=== PATIENT | male | born 1945 | race Caucasian/White ===

== ENCOUNTER 2016-09-10 11:26 | Inpatient (IN) | payer MEDICARE, BC ==
--- NOTE | 2016-09-10 12:10 | ED ---
General Adult HPI - General Chief complaint: Shortness of Breath Stated complaint: SOB Time Seen by Provider: 09/10/16 11:50 Source: patient, RN notes reviewed Mode of arrival: ambulatory Limitations: no limitations - History of Present Illness Initial comments: Is a 71-year-old male who presents emergency Department with a past medical history significant for atrial fibrillation and myocardial infarction. Patient states was discharged 2 days ago after he had a myocardial infarction. Patient states he had a catheterization in the catheterization did not require any stenting according to the patient. Patient comes in today because he short of breath complains of a little bit of leg edema and feels mildly anxious. Patient states he has no chest pain. Patient does feel palpitations. Patient denies any nausea vomiting diarrhea per patient denies diaphoresis. Patient denies headache patient denies numbness weakness. Patient denies lightheadedness dizziness or near syncopal episode. Patient denies any recent injury or trauma. - Related Data Home Medications Medication Instructions Recorded Confirmed Aspirin 325 mg PO DAILY 03/22/14 09/06/16 Atorvastatin [Lipitor] 20 mg PO HS 03/22/14 09/06/16 Ranitidine HCl [Zantac] 75 mg PO HS 03/22/14 09/06/16 Previous Rx's Medication Instructions Recorded Amiodarone [Cordarone] 200 mg PO BID #60 tab 09/08/16 Apixaban [Eliquis] 5 mg PO BID #60 tab 09/08/16 Furosemide [Lasix] 20 mg PO BID@0900,1600 #30 tab 09/08/16 Lisinopril [Zestril] 10 mg PO BID #60 tab 09/08/16 Metoprolol Tartrate [Lopressor] 50 mg PO BID #60 tab 09/08/16 Nitroglycerin Sl Tabs [Nitrostat] 0.4 mg SUBLINGUAL Q5M PRN #50 tab 09/08/16 Spironolactone [Aldactone] 25 mg PO DAILY #30 tab 09/08/16 Allergies Allergy/AdvReac Type Severity Reaction Status Date / Time No Known Allergies Allergy Verified 09/10/16 11:53 Review of Systems ROS Statement: Those systems with pertinent positive or pertinent negative responses have been documented in the HPI. ROS Other: All systems not noted in ROS Statement are negative. Past Medical History Past Medical History: Atrial Fibrillation, Heart Failure, Diabetes Mellitus, GERD/Reflux, GI Bleed, Hypertension, Myocardial Infarction ([place]), Osteoarthritis (OA) Additional Past Medical History / Comment(s): DIABETES DIET CONTROLLED, HX OF PERICARDITIS, TOOTH INFECTION AND EXTRACTION 03/21/2014 History of Any Multi-Drug Resistant Organisms: None Reported Past Surgical History: Orthopedic Surgery Additional Past Surgical History / Comment(s): RIGHT KNEE RECONSTRUCTION, RT KNEE ARTHROSCOPY, PILONIDAL CYST Past Anesthesia/Blood Transfusion Reactions: No Reported Reaction Past Psychological History: No Psychological Hx Reported Smoking Status: Former smoker Past Alcohol Use History: Rare Past Drug Use History: None Reported - Past Family History Father Family Medical History: Coronary Artery Disease (CAD), Osteoarthritis (OA) Additional Family Medical History / Comment(s): CABG, valve replacement Mother Family Medical History: Cancer, Diabetes Mellitus Additional Family Medical History / Comment(s): breast cancer Sister(s) Family Medical History: Congestive Heart Failure (CHF), Diabetes Mellitus Brother(s) Family Medical History: Hypertension General Exam - General Exam Comments Initial Comments: GENERAL: Patient is well-developed and well-nourished. Patient is nontoxic and well- hydrated and is in mild distress. ENT: Neck is soft and supple. No significant lymphadenopathy is noted. Oropharynx is clear. Moist mucous membranes. Neck has full range of motion without eliciting any pain. EYES: The sclera were anicteric and conjunctiva were pink and moist. Extraocular movements were intact and pupils were equal round and reactive to light. Eyelids were unremarkable. PULMONARY: Unlabored respirations. Good breath sounds bilaterally. No audible rales rhonchi or wheezing was noted. CARDIOVASCULAR: Patient is tachycardic at about 150 beats a minute. Patient's rate appears regular ABDOMEN: Soft and nontender with normal bowel sounds. No palpable organomegaly was noted. There is no palpable pulsatile mass. SKIN: Skin is clear with no lesions or rashes and otherwise unremarkable. NEUROLOGIC: Patient is alert and oriented x3. Cranial nerves II through XII are grossly intact. Motor and sensory are also intact. Normal speech, volume and content. Symmetrical smile. MUSCULOSKELETAL: Normal extremities with adequate strength and full range of motion. 1+ edema LYMPHATICS: No significant lymphadenopathy is noted PSYCHIATRIC: Normal psychiatric evaluation. Normal interpersonal interactions appears functionally intact in deals appropriately with others. No signs of depression. Mild anxiety Limitations: no limitations Course Vital Signs 09/10/16 09/10/16 09/10/16 11:50 12:24 12:46 Temperature 97.0 F L Pulse Rate 137 H 147 H Respiratory 18 22 22 Rate Blood Pressure 132/88 147/95 O2 Sat by Pulse 96 96 Oximetry 09/10/16 13:23 Temperature Pulse Rate 107 H Respiratory 20 Rate Blood Pressure O2 Sat by Pulse 96 Oximetry Medical Decision Making - Medical Decision Making EKG shows atrial for ablation with rapid ventricular response at 146 bpm QRS is 90 QT interval 258 QTC is 402. Patient's EKG shows no ST segment elevation or depression. I spoke with Dr. Cuellar about the patient because he was just discharged [address] Cuellar was familiar with him. And he wanted started the patient on amiodarone drip after I gave the patient a amiodarone bolus. She was requesting something for anxiety. The patient Ativan. Chest x-ray shows mild interstitial congestion. Dr. Cuellar did come down to see the patient. Patient's heart rate was in the 120s at time of admission. Patient remains an amiodarone drip. I wrote admitting orders consult cardiology - Lab Data Result diagrams: 09/10/16 12:23 09/10/16 12:23 Lab Results 09/10/16 09/10/16 09/10/16 Range/Units 12:23 12:23 12:23 WBC 11.5 H (3.8-10.6) k/uL RBC 5.87 (4.30-5.90) m/uL Hgb 16.1 (13.0-17.5) gm/dL Hct 49.1 (39.0-53.0) % MCV 83.6 (80.0-100.0) fL MCH 27.3 (25.0-35.0) pg MCHC 32.7 (31.0-37.0) g/dL RDW 15.1 (11.5-15.5) % Plt Count 221 (150-450) k/uL Neutrophils % 88 % Lymphocytes % 6 % Monocytes % 6 % Eosinophils % 0 % Basophils % 0 % Neutrophils # 10.1 H (1.3-7.7) k/uL Lymphocytes # 0.7 L (1.0-4.8) k/uL Monocytes # 0.6 (0-1.0) k/uL Eosinophils # 0.0 (0-0.7) k/uL Basophils # 0.0 (0-0.2) k/uL PT (9.0-12.0) sec INR (<1.1) APTT (22.0-30.0) sec Sodium 137 (137-145) mmol/L Potassium 4.6 (3.5-5.1) mmol/L Chloride 102 (98-107) mmol/L Carbon Dioxide 22 (22-30) mmol/L Anion Gap 13 mmol/L BUN 22 H (9-20) mg/dL Creatinine 0.90 (0.66-1.25) mg/dL Est GFR (MDRD) Af Amer >60 (>60 ml/min/1.73 sqM) Est GFR (MDRD) Non-Af >60 (>60 ml/min/1.73 sqM) Glucose 212 H (74-99) mg/dL Calcium 9.5 (8.4-10.2) mg/dL Total Bilirubin 1.2 (0.2-1.3) mg/dL AST 57 (17-59) U/L ALT 105 H (21-72) U/L Alkaline Phosphatase 100 (38-126) U/L Total Creatine Kinase 111 (55-170) U/L CK-MB (CK-2) 4.2 H* (0.0-2.4) ng/mL CK-MB (CK-2) Rel Index 3.8 Troponin I 0.085 H* (0.000-0.034) ng/mL NT-Pro-B Natriuret Pep pg/mL Total Protein 6.0 L (6.3-8.2) g/dL Albumin 3.6 (3.5-5.0) g/dL 09/10/16 09/10/16 Range/Units 12:23 12:23 WBC (3.8-10.6) k/uL RBC (4.30-5.90) m/uL Hgb (13.0-17.5) gm/dL Hct (39.0-53.0) % MCV (80.0-100.0) fL MCH (25.0-35.0) pg MCHC (31.0-37.0) g/dL RDW (11.5-15.5) % Plt Count (150-450) k/uL Neutrophils % % Lymphocytes % % Monocytes % % Eosinophils % % Basophils % % Neutrophils # (1.3-7.7) k/uL Lymphocytes # (1.0-4.8) k/uL Monocytes # (0-1.0) k/uL Eosinophils # (0-0.7) k/uL Basophils # (0-0.2) k/uL PT 12.7 H (9.0-12.0) sec INR 1.3 (<1.1) APTT 24.8 (22.0-30.0) sec Sodium (137-145) mmol/L Potassium (3.5-5.1) mmol/L Chloride (98-107) mmol/L Carbon Dioxide (22-30) mmol/L Anion Gap mmol/L BUN (9-20) mg/dL Creatinine (0.66-1.25) mg/dL Est GFR (MDRD) Af Amer (>60 ml/min/1.73 sqM) Est GFR (MDRD) Non-Af (>60 ml/min/1.73 sqM) Glucose (74-99) mg/dL Calcium (8.4-10.2) mg/dL Total Bilirubin (0.2-1.3) mg/dL AST (17-59) U/L ALT (21-72) U/L Alkaline Phosphatase (38-126) U/L Total Creatine Kinase (55-170) U/L CK-MB (CK-2) (0.0-2.4) ng/mL CK-MB (CK-2) Rel Index Troponin I (0.000-0.034) ng/mL NT-Pro-B Natriuret Pep 31946 pg/mL Total Protein (6.3-8.2) g/dL Albumin (3.5-5.0) g/dL Critical Care Time Critical Care Time: Yes Total Critical Care Time: 40 Disposition Clinical Impression: Atrial fibrillation with RVR Disposition: ADMITTED IP TO THIS HOSP Referrals: Omari Freeman MD [Primary Care Provider] - 1-2 days Time of Disposition: 13:46
[2016-09-10] MEDS ORDERED: DEXTROSE 5% IN WATER 100 ML with AMIODARONE 150 MG IV ONE (12:15)
[2016-09-10] MEDS ORDERED: AMIODARONE 450 MG in DEXTROSE 5% IN WATER 250 ML IV ONE ×2 (12:15)
[2016-09-10] MEDS ORDERED: LORazepam 2 MG/ML SYRINGE IV STA (12:15)
[2016-09-10 12:42] LABS: Basophils % (A) 0 %; CH 27.3; CHCM 32.8; Eosinophils % (A) 0 %; HCT 49.1 % (39.0-53.0); HDW 2.55; HGB 16.1 gm/dL (13.0-17.5); Luc % (Auto) 1; Lymphocytes # (A) 0.7 k/uL (1.0-4.8); Lymphocytes % (A) 6 %; MCH 27.3 pg (25.0-35.0); MCHC 32.7 g/dL (31.0-37.0); MCV 83.6 fL (80.0-100.0); Mean Platelet Volume 7.6; Monocytes # (A) 0.6 k/uL (0-1.0); Monocytes % (A) 6 %; Neutrophils # (A) 10.1 k/uL (1.3-7.7); Neutrophils % (A) 88 %; RBC 5.87 m/uL (4.30-5.90); RDW 15.1 % (11.5-15.5); WBC 11.5 k/uL (3.8-10.6); WBC (Perox) 11.74
--- NOTE | 2016-09-10 12:48 | XR ---
EXAMINATION TYPE: XR chest 2V DATE OF EXAM: 09/10/2016 12:43 PM COMPARISON: 09/05/2016 HISTORY: Shortness of breath FINDINGS: There are bilateral pleural effusions with cardiomegaly and bibasilar infiltrate. There is a diffuse interstitial pattern. Hyperinflation suggests COPD. Underlying chronic interstitial lung disease lubna pected. Josie appears to be enlarged. IMPRESSION: 1. COPD with suspected interstitial congestion or pneumonitis. There are also small bilateral effusio ns. 2. Persistent hilar enlargement reported be related to adenopathy by previous CT scan.
[2016-09-10 12:49] LABS: INR 1.3 (<1.1); Partial Thromboplastin Time 24.8 sec (22.0-30.0); Prothrombin Time 12.7 sec (9.0-12.0)
[2016-09-10 13:01] LABS: ALT 105 U/L (21-72); AST 57 U/L (17-59); Alkaline Phosphatase 100 U/L (38-126); Anion Gap 13 mmol/L; Blood Urea Nitrogen 22 mg/dL (9-20); Calcium 9.5 mg/dL (8.4-10.2); Carbon Dioxide 22 mmol/L (22-30); Chloride 102 mmol/L (98-107); Glucose 212 mg/dL (74-99); Non-African American GFR(MDRD) >60 (>60 ml/min/1.73 sqM); Potassium 4.6 mmol/L (3.5-5.1); Sodium 137 mmol/L (137-145); Total Bilirubin 1.2 mg/dL (0.2-1.3)
[2016-09-10 13:32] LABS: Creatine Kinase MB 4.2 ng/mL (0.0-2.4)
[2016-09-10 13:33] LABS: Troponin I 0.085 ng/mL (0.000-0.034)
[2016-09-10] MEDS ORDERED: NITROGLYCERIN SL TABS 0.4 MG TAB SUBLINGUAL PRN ×2 (13:48→18:34)
[2016-09-10 17:05] LABS: Glucose,Whole Blood 262 mg/dL (75-99)
[2016-09-10 19:31] LABS: Creatine Kinase MB 4.5 ng/mL (0.0-2.4); Troponin I 0.088 ng/mL (0.000-0.034)
[2016-09-10] MEDS ORDERED: DIGOXIN 250 MCG/ML 2 ML AMP IVP ONE (20:06)
--- NOTE | 2016-09-10 20:14 | P.CRDCN ---
History of Present Illness Consult date: 09/10/16 History of present illness: This is a 71-year-old gentleman with history of previous pericarditis and hypertensive cardiac vascular disease who was recently admitted to the hospital with complaints of increasing shortness of breath, dyspnea related to the atrial fibrillation and congestive heart failure. Patient also had borderline positive troponins and coronary calcification on the computed tomography scan. Patient had a cardiac catheterization and was found to have mild diffuse disease without any significant focal lesions. He was put on amiodarone along with beta haleigh and diuretics and was sent home in a stable condition. Patient is readmitted to the hospital with complaints of increasing shortness of breath and tachycardia. He was found to be atypical fibrillation with RVR and also evidence of some CHF on chest x-ray. We are going to start him on IV amiodarone, continue with better haleigh and add a dose of Lanoxin. We will continue with IV diuretics. His chest x-ray shows prominence of mediastinum and enlarged lymph nodes. A pulmonary consultation be also be obtained. Further recommendations depend upon the clinical course. Review of Systems REVIEW OF SYSTEMS: CONSTITUTIONAL:. Patient is doing well. No complaints of fever or chills EYES: Denies diplopia, blurring of vision EARS, NOSE, MOUTH, THROAT: Denies headaches, denies sore throat. CARDIOVASCULAR: As per HPI RESPIRATORY: Complains of cough GASTROINTESTINAL: Denies change in appetite, denies abdominal pain, denies diarrhea GENITOURINARY: Denies hematuria, denies infections. MUSKULOSKELETAL: Denies pain, denies swelling. Denies any cramps or claudication INTEGUMENTARY: Denies rash, denies eczema. NEUROLOGICAL: Denies focal weakness, or visual disturbance. Denies any dizziness or syncope PSYCHIATRIC: Denies anxiety, denies depression. HEMATOLOGIC/LYMPHATIC: Denies any bleeding, denies enlarged lymph nodes. Past Medical History Past Medical History: Atrial Fibrillation, Coronary Artery Disease (CAD), Heart Failure, Diabetes Mellitus, GERD/Reflux, GI Bleed, Hyperlipidemia, Hypertension , Osteoarthritis (OA) Additional Past Medical History / Comment(s): Pt recently admitted 09/05/16 with NSTEMI, Afib RVR, chf and cardiomyopathy. Other HX: Paroxysmal Afib, DIABETES DIET CONTROLLED, HX OF PERICARDITIS, TOOTH INFECTION AND EXTRACTION 06/2014, "bleed" related to heparin per spouse, History of Any Multi-Drug Resistant Organisms: None Reported Past Surgical History: Orthopedic Surgery Additional Past Surgical History / Comment(s): 09/08/16 cardiac cath with mild disease-tx with medication, RIGHT KNEE RECONSTRUCTION, RT KNEE ARTHROSCOPY, PILONIDAL CYST, colonoscopy. Past Anesthesia/Blood Transfusion Reactions: No Reported Reaction Past Psychological History: Anxiety Additional Psychological History / Comment(s): Pt resides with his spouse. He is independent. Smoking Status: Former smoker Past Alcohol Use History: Rare Additional Past Alcohol Use History / Comment(s): Pt started smoking as a teen and quit in 1985. Past Drug Use History: None Reported - Past Family History Father Family Medical History: Coronary Artery Disease (CAD), Osteoarthritis (OA) Additional Family Medical History / Comment(s): CABG, valve replacement Mother Family Medical History: Cancer, Diabetes Mellitus Additional Family Medical History / Comment(s): breast cancer Sister(s) Family Medical History: Congestive Heart Failure (CHF), Diabetes Mellitus Brother(s) Family Medical History: Hypertension Medications and Allergies Home Medications Medication Instructions Recorded Confirmed Type Aspirin 325 mg PO DAILY 03/22/14 09/10/16 History Atorvastatin [Lipitor] 20 mg PO HS 03/22/14 09/10/16 History Ranitidine HCl [Zantac] 75 mg PO HS 03/22/14 09/10/16 History Allergies Allergy/AdvReac Type Severity Reaction Status Date / Time lorazepam [From Ativan] AdvReac Hallucinati Verified 09/10/16 17:25 ons Physical Exam Vitals: Vital Signs Temp Pulse Pulse Resp BP BP Pulse Ox 09/10/16 18:13 96.8 F L 125 H 111/69 94 L 09/10/16 14:39 97.1 F L 09/10/16 14:37 105 H 20 140/97 94 L GENERAL EXAM: Patient is alert and oriented and doesn't appear to be in any acute distress HEENT: Normocephalic. Normal reaction of pupils, equal size, normal range of extraocular motion. No erythema or exudates in the throat. NECK: No masses, no nuchal rigidity. Mild JVD CHEST: No chest wall deformity. LUNGS: He rales. HEART: S1 and S2 normal . Irregular heart sounds ABDOMEN: No hepatosplenomegaly, normal bowel sounds, no guarding or rigidity. SKIN: No rashes CENTRAL NERVOUS SYSTEM: No focal deficits. EXTREMITIES: No cyanosis, clubbing or edema. Results 09/10/16 12:23 09/10/16 12:23 Cardiac Enzymes 09/10/16 Range/Units 18:38 CK-MB (CK-2) 4.5 H* (0.0-2.4) ng/mL Troponin I 0.088 H* (0.000-0.034) ng/mL Current Medications Generic Name Dose Route Start Last Admin Trade Name Freq PRN Reason Stop Dose Admin Apixaban 5 mg 09/10/16 21:00 Eliquis PO BID [facility] Atorvastatin Calcium 20 mg 09/10/16 21:00 Lipitor PO HS [facility] Digoxin 250 mcg 09/10/16 20:06 Lanoxin IVP 09/10/16 20:07 ONCE ONE Furosemide 40 mg 09/10/16 21:00 Lasix IV Q12HR [facility] Lisinopril 5 mg 09/11/16 09:00 Zestril PO DAILY [facility] Metoprolol Tartrate 50 mg 09/10/16 21:00 Lopressor PO BID [facility] Nitroglycerin 0.4 mg 09/10/16 18:34 Nitrostat SUBLINGUAL Q5M PRN Chest Pain Non-Formulary Medication 75 mg 09/10/16 21:00 Ranitidine Hcl [Zantac] PO HS [facility] EKG Interpretations (text) Atrial fibrillation with fast ventricular response Assessment and Plan (1) Cardiomyopathy Status: Acute (2) Atrial fibrillation with RVR Status: Acute (3) HTN (hypertension) Status: Acute (4) Hyperlipemia Status: Acute (5) Systolic CHF, acute on chronic Status: Acute (6) CAD (coronary artery disease) Status: Acute Plan: We'll continue with IV amiodarone. I will also give one dose of Lanoxin. Beta blockers will be continued. Patient will be initiated on IV diuretics. MYRIAM inhibitor also be continued. We'll may switch to Entresto if necessary. Further recommendations will depend upon the clinical course.
[2016-09-10] MEDS: AMIODARONE 450 MG in DEXTROSE 5% IN WATER 250 ML IV SCH ×2 (20:57)
[2016-09-10] MEDS ORDERED: LISINOPRIL 10 MG TAB PO SCH (21:00)
[2016-09-10 21:33] LABS: Glucose,Whole Blood 268 mg/dL (75-99)
[2016-09-10] MEDS: FAMOTIDINE 20 MG TAB PO SCH ×3 (23:02→23:40)
[2016-09-10] MEDS: FUROSEMIDE 10 MG/ML 4 ML VIAL IV SCH (23:40)
[2016-09-11] MEDS: ATORVASTATIN 20 MG TAB PO SCH ×2 (01:33→20:14)
[2016-09-11] MEDS: APIXABAN 5 MG TAB PO SCH ×3 (01:33→20:14)
[2016-09-11] MEDS: ALPRAZolam 0.25 MG TAB PO PRN ×2 (01:34→23:24)
[2016-09-11] MEDS: METOPROLOL TARTRATE 50 MG TAB PO SCH ×3 (01:34→20:15)
[2016-09-11] MEDS ORDERED: PANTOPRAZOLE 40 MG/10 ML VIAL IVP ONE (01:55)
[2016-09-11 02:22] LABS: Creatine Kinase MB 4.5 ng/mL (0.0-2.4); Troponin I 0.139 ng/mL (0.000-0.034)
[2016-09-11 06:34] LABS: Glucose,Whole Blood 249 mg/dL (75-99)
[2016-09-11 07:04] LABS: Basophils % (A) 0 %; CH 27.3; CHCM 32.2; Eosinophils % (A) 0 %; HGB 14.9 gm/dL (13.0-17.5); Luc # (Auto) 0.15; Luc % (Auto) 1; Lymphocytes # (A) 0.8 k/uL (1.0-4.8); Lymphocytes % (A) 6 %; MCHC 31.8 g/dL (31.0-37.0); MCV 84.9 fL (80.0-100.0); Mean Platelet Volume 7.8; Monocytes # (A) 0.7 k/uL (0-1.0); Monocytes % (A) 6 %; Neutrophils # (A) 10.5 k/uL (1.3-7.7); Neutrophils % (A) 86 %; RBC 5.53 m/uL (4.30-5.90); WBC 12.2 k/uL (3.8-10.6); WBC (Perox) 12.52
[2016-09-11] MEDS ORDERED: INSULIN LISPRO (humaLOG) 300 UNIT/3 ML VIAL SQ ONE (07:16)
[2016-09-11 07:25] LABS: Anion Gap 14 mmol/L; Blood Urea Nitrogen 27 mg/dL (9-20); Calcium 9.2 mg/dL (8.4-10.2); Carbon Dioxide 21 mmol/L (22-30); Chloride 96 mmol/L (98-107); Cholesterol 114 mg/dL (<200); Glucose 267 mg/dL (74-99); HDL Cholesterol 38 mg/dL (40-60); Non-African American GFR(MDRD) >60 (>60 ml/min/1.73 sqM); Potassium 4.8 mmol/L (3.5-5.1); Sodium 131 mmol/L (137-145); Triglycerides 74 mg/dL (<150)
[2016-09-11] MEDS ORDERED: PANTOPRAZOLE 40 MG TABLET PO SCH (07:30)
[2016-09-11] MEDS: INSULIN LISPRO (humaLOG) 300 UNIT/3 ML VIAL SQ SCH ×4 (07:56→20:26)
[2016-09-11] MEDS: ONDANSETRON 4 MG/2 ML VIAL IVP PRN ×2 (08:09→13:56)
[2016-09-11] MEDS: FUROSEMIDE 10 MG/ML 4 ML VIAL IV SCH ×2 (08:28→20:15)
[2016-09-11] MEDS: LISINOPRIL 5 MG TAB PO SCH (08:29)
[2016-09-11] MEDS ORDERED: SPIRONOLACTONE 25 MG TAB PO SCH (09:00)
[2016-09-11] MEDS ORDERED: FUROSEMIDE 20 MG TAB PO SCH (09:00)
[2016-09-11] MEDS ORDERED: ASPIRIN 325 MG TAB PO SCH ×2 (09:00)
--- NOTE | 2016-09-11 09:30 | HP ---
DATE OF ADMISSION: 09/10/2016 CHIEF COMPLAINT: Shortness of breath. HISTORY OF PRESENT ILLNESS: This 71-year-old gentleman with a past medical history of paroxysmal atrial fibrillation for the last 10 years, history of mild to moderate nonobstructive coronary artery disease in the left anterior descending artery and recent cardiac history of congestive heart failure with chronic systolic dysfunction, ejection fraction 30%, Type 2 diabetes mellitus, GERD, history of gastrointestinal bleed, hypertension, history of degenerative joint disease being followed by Dr. Freeman in the outpatient setting was complaining of shortness of breath. Complaints of increasing shortness of breath over the past several days. Patient was recently admitted to [facility] with atrial fibrillation with fast ventricular rate. The patient rate was controlled and the patient was sent home. Because of increased shortness of breath, the patient came to [facility] and shortness of breath increasing activity and also while lying down. The patient also noted increase in weight and as well as increasing edema. Chest x-ray showed congestive heart failure and prominent right hilar lymphadenopathy and also some calcifications also associated. There is no history of any fever, rigors or chills. No history of headache, loss of consciousness or seizures. The patient admitted to the hospital for further evaluation and treatment. The patient atrial fibrillation with fast ventricular rate, initiated with some improvement in cardiac rhythm. Past medical history of CHF, history of coronary artery disease, history of gastroesophageal reflux disease, history of GI bleed, hypertension, hyperlipidemia, degenerative joint disease, history of recent cardiac catheterization, history of pericarditis. MEDICATIONS: Prior to admission include home medications are: 1. Aldactone 25 mg p.o. daily. 2. Zantac 75 mg q.h.s. 3. Nitrostat 0.4 sublingual p.r.n. 4. Lopressor 50 mg p.o. b.i.d. 5. Zestril 10 mg b.i.d. 6. Lasix 20 mg p.o. b.i.d. 7. Lipitor 20 mg p.o. q.h.s. 8. Aspirin 325 mg p.o. daily. 9. Eliquis 5 mg p.o. b.i.d. 10. Cordarone 200 mg p.o. b.i.d. ALLERGIES: ATIVAN. FAMILY HISTORY: History of coronary artery disease, history of degenerative joint disease, coronary artery bypass grafting, valve replacement in the family. SOCIAL HISTORY: History of smoking. Occasional alcohol intake. REVIEW OF SYSTEMS: ENT: No diminished vision, no diminished hearing. CARDIOVASCULAR: As mentioned earlier. RESPIRATORY: As mentioned earlier. GI: No nausea. No vomiting. : No dysuria. Nervous system: no numbness or weakness. Allergy/immunology: No asthma or hayfever. MUSCULOSKELETAL: As mentioned earlier. HEMATOLOGY/ONCOLOGY: No history of anemia. ENDOCRINE: No history of diabetes or hypothyroidism. CONSTITUTIONAL: As mentioned earlier. DERMATOLOGY: Negative. RHEUMATOLOGY: Negative. PSYCHIATRY: As mentioned earlier. FAMILY HISTORY: History of coronary artery disease. History of degenerative joint disease, coronary artery bypass grafting, valve replacement. 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 Previous history of smoking. Occasional alcohol intake. REVIEW OF SYSTEMS: ENT: No diminished vision. No diminished hearing. CARDIOVASCULAR: As mentioned earlier. RESPIRATORY: As mentioned earlier. GI: No nausea. No vomiting. : No dysuria. Nervous system: No numbness or weakness. ALLERGY/IMMUNOLOGY: No asthma or hay fever. MUSCULOSKELETAL: As mentioned earlier. HEMATOLOGY/ONCOLOGY: No history of anemia. ENDOCRINE: No history of diabetes or hypothyroidism. CONSTITUTIONAL: as mentioned earlier. DERMATOLOGY: Negative. RHEUMATOLOGY: Negative. PSYCHIATRY: As mentioned earlier. PHYSICAL EXAMINATION: GENERAL: the patient is alert and oriented times three. VITAL SIGNS: Pulse is 105, blood pressure 149/76, respirations 20, temperature is 97.4, pulse ox 94% on 2 liters. HEENT: Conjunctivae normal. Oral mucosa moist. NECK: No jugular venous distention at the root of the neck. CARDIOVASCULAR: S1, S2 muffled. Ejection systolic murmur. No S3, No S4. RESPIRATORY: Breath sounds diminished at the bases. A few scattered rhonchi, no crackles. Breath sounds diminished bilaterally. ABDOMEN: Soft, obese, nontender, obese, no mass palpable. LEGS: Minimal bilateral leg edema. Pulses felt normally. Nervous system: Higher function as mentioned earlier. Moves all four limbs. No focal deficits. LYMPHATICS: No lymph nodes palpable in the neck, axillae or groin. SKIN: No ulcer, rash or bleeding. Lab investigations at this time shows: WBC 7.8, hemoglobin 16.1. Otherwise INR is 1.3. Glucose 212 and 262, ALT is 105, creatinine kinase is 236. Troponin 0.083, total protein 6, albumin 3.6. Chest x-ray chronic obstructive pulmonary disease with congestion. ASSESSMENT: 1. Shortness of breath with possible congestive heart failure, acute exacerbation, with acute on chronic systolic dysfunction, ejection fraction 30% with possible cardiomyopathy. 2. Atrial fibrillation with fast ventricular rate. 3. Possible chronic obstructive pulmonary disease. 4. Right prominent lymph nodes and diffuse calcifications. 5. History of atrial fibrillation. 6. History of mild to moderate coronary artery disease on the recent cardiac catheterization. 7. History of diabetes type 2. 8. History of gastroesophageal reflux disease. 9. History of gastrointestinal bleed. 10. Hypertension. 11. Hyperlipidemia. 12. History of degenerative joint disease. 13. History of pericarditis. 14. History of degenerative joint disease. 15. History of anxiety. 16. Remote history of nicotine dependence. 17. FULL CODE. RECOMMENDATIONS AND DISCUSSION: In this 71-year-old gentleman who presented with multiple complex medical issues, we will monitor the patient closely. Continue current medications. Continue symptomatic treatment. Otherwise, at this time, I would recommend continue the current medications, we will initiate IV diuretics. Other than that I would also recommend close follow up with cardiology and amiodarone drip was initiated. Continue the rest of the home medications. Prognosis guarded because of multiple complex medical issues. Discussed with the patient, understands and agrees. A copy of this dictation is being forwarded to Dr. Omari Freeman who is the primary care physician. See orders for further details. EMILD
[2016-09-11 11:39] LABS: Glucose,Whole Blood 163 mg/dL (75-99)
[2016-09-11] MEDS: AMIODARONE 450 MG in DEXTROSE 5% IN WATER 250 ML IV SCH ×2 (12:04)
[2016-09-11] MEDS: MULTIVITAMINS, THERA 1 EACH TAB PO SCH (12:05)
[2016-09-11 13:34] LABS: Hemoglobin A1C 6.8 % (4.2-6.1)
[2016-09-11] MEDS: SPIRONOLACTONE 25 MG TAB PO SCH (13:56)
[2016-09-11] MEDS: AMIODARONE 200 MG TAB PO SCH ×2 (13:56→20:14)
--- NOTE | 2016-09-11 14:00 | P.PN ---
Subjective This is a pleasant 71-year-old gentleman with a known history of previous pericarditis, hypertension, proximal atrial fibrillation. Patient was recently discharged from the hospital after admission for congestive heart failure and atrial fibrillation underwent cardiac catheterization and was found to have mild diffuse disease without any significant focal lesions. She was readmitted to the hospital with complaints of increasing shortness of breath and tachycardia. He was found to be in atrial fibrillation with RVR and also had evidence of CHF on his chest x-ray. He was started on IV amiodarone and IV diuretics. He continues on beta blockers and was given 1 dose of IV digoxin. Chest x-ray did show some prominence of the mediastinum and enlarged lymph nodes and pulmonary has been consulted. On examination, patient is feeling quite a bit better. He was able to ambulate in the halls without much difficulties. He feels his breathing is better and his heart rate is under better control. His heart rate is a bit better running ~100 bpm. Objective - Vital Signs Vital signs: Vital Signs Temp 98.8 F 09/11/16 08:00 Pulse 120 H 09/11/16 08:00 Resp 18 09/11/16 08:00 BP 149/94 09/11/16 08:00 Pulse Ox 97 09/11/16 08:00 Intake & Output 09/10/16 09/11/16 09/11/16 18:59 06:59 18:59 Intake Total 480 377 Output Total 1100 Balance -620 377 Weight 95.1 kg Intake: Intake, IV Titration 259 Amount Amiodarone 450 mg In 259 Dextrose 5% in Water 250 ml @ 0.5 MG/MIN 17.26 mls /hr IV .Q15H1M [facility] Rx#: [id number] Oral 480 118 Output: Urine 1100 - Exam PHYSICAL EXAMINATION: HEENT: Head is atraumatic, normocephalic. Pupils equal, round. Neck is supple. There is no elevated jugular venous pressure. HEART EXAMINATION: Heart sounds are regular irregular, S1 and S2 normal. No murmur or gallop heard. CHEST EXAMINATION: Lungs reveal crackles to bilateral bases. No chest wall tenderness is noted on palpation or with deep breathing. ABDOMEN: Soft, nontender. Bowel sounds are heard. No organomegaly noted. EXTREMITIES: 2+ peripheral pulses with evidence of trace peripheral edema and no calf tenderness noted. NEUROLOGIC patient is awake, alert and oriented x3. . - Labs CBC & Chem 7: 09/11/16 06:16 09/11/16 06:16 Labs: Abnormal Lab Results - Last 24 Hours (Table) 09/10/16 09/10/16 09/10/16 Range/Units 16:58 18:38 21:31 WBC (3.8-10.6) k/uL Neutrophils # (1.3-7.7) k/uL Lymphocytes # (1.0-4.8) k/uL Sodium (137-145) mmol/L Chloride (98-107) mmol/L Carbon Dioxide (22-30) mmol/L BUN (9-20) mg/dL Glucose (74-99) mg/dL POC Glucose (mg/dL) 262 H 268 H (75-99) mg/dL Total Creatine Kinase 236 H (55-170) U/L CK-MB (CK-2) 4.5 H* (0.0-2.4) ng/mL Troponin I 0.088 H* (0.000-0.034) ng/mL HDL Cholesterol (40-60) mg/dL 09/11/16 09/11/16 09/11/16 Range/Units 00:59 06:16 06:16 WBC 12.2 H (3.8-10.6) k/uL Neutrophils # 10.5 H (1.3-7.7) k/uL Lymphocytes # 0.8 L (1.0-4.8) k/uL Sodium 131 L (137-145) mmol/L Chloride 96 L (98-107) mmol/L Carbon Dioxide 21 L (22-30) mmol/L BUN 27 H (9-20) mg/dL Glucose 267 H (74-99) mg/dL POC Glucose (mg/dL) (75-99) mg/dL Total Creatine Kinase 199 H (55-170) U/L CK-MB (CK-2) 4.5 H* (0.0-2.4) ng/mL Troponin I 0.139 H* (0.000-0.034) ng/mL HDL Cholesterol 38 L (40-60) mg/dL 09/11/16 09/11/16 Range/Units 06:30 11:38 WBC (3.8-10.6) k/uL Neutrophils # (1.3-7.7) k/uL Lymphocytes # (1.0-4.8) k/uL Sodium (137-145) mmol/L Chloride (98-107) mmol/L Carbon Dioxide (22-30) mmol/L BUN (9-20) mg/dL Glucose (74-99) mg/dL POC Glucose (mg/dL) 249 H 163 H (75-99) mg/dL Total Creatine Kinase (55-170) U/L CK-MB (CK-2) (0.0-2.4) ng/mL Troponin I (0.000-0.034) ng/mL HDL Cholesterol (40-60) mg/dL Assessment and Plan Plan: Assessment and plan #1 cardiomyopathy #2 atrial fibrillation with RVR, paroxysmal #3 hypertension #4 hyperlipidemia #5 acute on chronic systolic congestive heart failure From cardiac standpoint, we will continue IV Lasix, beta blockers and delfina inhibitors. We will stop IV amiodarone and start the patient on 400 mg by mouth twice a day. We will also start the patient on Aldactone 25 mg daily. Depending on clinical course, we may consider Entresto at a later date. Further recommendations to follow. ME[employer] note has been reviewed, I agree with a documented findings and plan of care. Patient was seen and examined.
--- NOTE | 2016-09-11 15:12 | P.CNPUL ---
History of Present Illness Consult date: 09/11/16 Requesting physician: Mica Hernandez Reason for consult: abnormal CXR/CT Chief complaint: Shortness of breath lower extremity edema History of present illness: This is a very pleasant 71-year-old gentleman who follows with Dr. Freeman as his primary care physician. He has a history of atrial fibrillation, diabetes mellitus, hypertension, previous myocardial infarction, GERD, osteoarthritis. He was just recently discharged today days ago prior to his return following an episode of chest discomfort and had undergone cardiac catheterization that did not require any intervention. His echocardiogram did reveal impaired left ventricular systolic function with estimated ejection fraction 30-35%. He will return to the ER yesterday with complaints of shortness of breath some swelling in the lower extremities and a feeling of anxiousness. He denied any recurrence of chest pain, palpitations lightheadedness or dizziness. His EKG did reveal atrial fibrillation with a rapid ventricular response in the 140s. He was admitted for the same. His chest x-ray revealed some mild congestive heart failure. There is also evidence of chronic obstructive pulmonary disease and a persistent hilar enlargement related to adenopathy is seen on a previous CAT scan from last admission. There is prominent right hilar lymph node along with old granulomatous disease. We are consulted today for the same. Presently , the patient is seen resting quite comfortably in bed on the selective care unit. He is awake and alert in no acute distress. He denies any worsening shortness of breath, cough or congestion. No hemoptysis. No noted weight loss. He does have a remote history of smoking. He denies any chronic obstructive pulmonary disease, no emphysema/asthma. No home inhalers. He has not been seen by a housing officer in the past. Review of Systems 14 point review of system was conducted. All negative other than as mentioned in HPI. Past Medical History Past Medical History: Atrial Fibrillation, Coronary Artery Disease (CAD), Heart Failure, Diabetes Mellitus, GERD/Reflux, GI Bleed, Hyperlipidemia, Hypertension , Osteoarthritis (OA) Additional Past Medical History / Comment(s): Pt recently admitted 09/05/16 with NSTEMI, Afib RVR, chf and cardiomyopathy. Other HX: Paroxysmal Afib, DIABETES DIET CONTROLLED, HX OF PERICARDITIS, TOOTH INFECTION AND EXTRACTION 06/2014, "bleed" related to heparin per spouse, History of Any Multi-Drug Resistant Organisms: None Reported Past Surgical History: Orthopedic Surgery Additional Past Surgical History / Comment(s): 09/08/16 cardiac cath with mild disease-tx with medication, RIGHT KNEE RECONSTRUCTION, RT KNEE ARTHROSCOPY, PILONIDAL CYST, colonoscopy. Past Anesthesia/Blood Transfusion Reactions: No Reported Reaction Past Psychological History: Anxiety Additional Psychological History / Comment(s): Pt resides with his spouse. He is independent. Smoking Status: Former smoker Past Alcohol Use History: Rare Additional Past Alcohol Use History / Comment(s): Pt started smoking as a teen and quit in 1985. Past Drug Use History: None Reported - Past Family History Father Family Medical History: Coronary Artery Disease (CAD), Osteoarthritis (OA) Additional Family Medical History / Comment(s): CABG, valve replacement Mother Family Medical History: Cancer, Diabetes Mellitus Additional Family Medical History / Comment(s): breast cancer Sister(s) Family Medical History: Congestive Heart Failure (CHF), Diabetes Mellitus Brother(s) Family Medical History: Hypertension Medications and Allergies Home Medications Medication Instructions Recorded Confirmed Type Aspirin 325 mg PO DAILY 03/22/14 09/10/16 History Atorvastatin [Lipitor] 20 mg PO HS 03/22/14 09/10/16 History Ranitidine HCl [Zantac] 75 mg PO HS 03/22/14 09/10/16 History Allergies Allergy/AdvReac Type Severity Reaction Status Date / Time lorazepam [From Ativan] AdvReac Hallucinati Verified 09/10/16 17:25 ons Physical Exam Vitals: Vital Signs Temp Pulse Pulse Resp BP BP Pulse Ox 09/11/16 08:00 98.8 F 120 H 18 149/94 97 09/11/16 04:00 97.6 F 111 H 20 139/70 94 L 09/11/16 00:00 97.1 F L 146 H 20 155/110 93 L 09/10/16 20:00 98.0 F 116 H 20 143/90 95 09/10/16 18:13 96.8 F L 125 H 111/69 94 L 09/10/16 14:39 97.1 F L 09/10/16 14:37 105 H 20 140/97 94 L Intake and Output 09/10/16 09/11/16 09/11/16 22:59 06:59 14:59 Intake Total 480 377 Output Total 100 1000 Balance -100 -520 377 Intake: Intake, IV Titration 259 Amount Amiodarone 450 mg In 259 Dextrose 5% in Water 250 ml @ 0.5 MG/MIN 17.26 mls /hr IV .Q15H1M [facility] Rx#: [id number] Oral 480 118 Output: Urine 100 1000 Other: Weight 95.1 kg GENERAL EXAM: Alert, active, comfortable in no apparent distress. HEAD: Normocephalic. EYES: Normal reaction of pupils, equal size. NOSE: Clear with pink turbinates. THROAT: No erythema or exudates. NECK: No masses, no JVD. CHEST: No chest wall deformity. LUNGS: Equal air entry with crackles in the bilateral posterior bases.. CVS: S1 and S2 normal with an audible mumurs, irregular rhythm. ABDOMEN: No hepatosplenomegaly, normal bowel sounds, no guarding or rigidity. SPINE: No scoliosis or deformity SKIN: No rashes CENTRAL NERVOUS SYSTEM: No focal deficits, tone is normal in all 4 extremities. Extremities: There is trace peripheral edema. No clubbing, no cyanosis. Peripheral pulses are intact. Results - Laboratory Findings CBC and BMP: 09/11/16 06:16 09/11/16 06:16 PT/INR, D-dimer PT 12.7 sec (9.0-12.0) H 09/10/16 12:23 INR 1.3 (<1.1) 09/10/16 12:23 Abnormal lab findings: Abnormal Labs 09/10/16 09/10/16 09/10/16 16:58 18:38 21:31 WBC Neutrophils # Lymphocytes # Sodium Chloride Carbon Dioxide BUN Glucose POC Glucose (mg/dL) 262 H 268 H Total Creatine Kinase 236 H CK-MB (CK-2) 4.5 H* Troponin I 0.088 H* HDL Cholesterol 09/11/16 09/11/16 09/11/16 00:59 06:16 06:16 WBC 12.2 H Neutrophils # 10.5 H Lymphocytes # 0.8 L Sodium 131 L Chloride 96 L Carbon Dioxide 21 L BUN 27 H Glucose 267 H POC Glucose (mg/dL) Total Creatine Kinase 199 H CK-MB (CK-2) 4.5 H* Troponin I 0.139 H* HDL Cholesterol 38 L 09/11/16 09/11/16 06:30 11:38 WBC Neutrophils # Lymphocytes # Sodium Chloride Carbon Dioxide BUN Glucose POC Glucose (mg/dL) 249 H 163 H Total Creatine Kinase CK-MB (CK-2) Troponin I HDL Cholesterol Assessment and Plan Plan: Impression: #1 Acute exacerbation of chronic systolic congestive heart failure. Impaired left ventricular systolic function with estimated ejection fraction 30-35%. #2 Atrial fibrillation with rapid ventricular response requiring IV amiodarone. Anticoagulated with Eliquis. #3 Coronary artery disease with recent non-ST segment elevation myocardial infarction. Cardiac catheterization revealed mild to moderate nonobstructive disease involving the left anterior descending artery in the first obtuse marginal branch. The plan is to treat medically. #4 Prominent single right hilar lymph node measuring 2.0 x 1.4 cm. #5 Remote history of chronic nicotine addiction. #6 Diabetes mellitus, diet controlled. #7 Gastroesophageal reflux disease. #8 Hypertension. Plan: The patient was seen and evaluated by Dr. Peterson. His chest x-rays and previous CT angiogram were reviewed. The right mediastinal lymph node is measured at 2.0 x 1.4 cm. This could be reactive in nature. However a repeat CAT scan of the chest in 4 months for follow-up would be recommended. We'll continue to follow make further recommendations based on his clinical status. Time with Patient: Greater than 30
[2016-09-11 17:03] LABS: Glucose,Whole Blood 125 mg/dL (75-99)
[2016-09-11] MEDS: MELATONIN 3 MG TABLET PO SCH ×2 (20:15→23:24)
[2016-09-11] MEDS: FAMOTIDINE 20 MG TAB PO SCH (20:15)
[2016-09-11 20:53] LABS: Glucose,Whole Blood 173 mg/dL (75-99)
[2016-09-12 06:17] LABS: Glucose,Whole Blood 130 mg/dL (75-99)
[2016-09-12] MEDS: INSULIN LISPRO (humaLOG) 300 UNIT/3 ML VIAL SQ SCH ×4 (06:19→20:08)
[2016-09-12 07:49] LABS: Anion Gap 9 mmol/L; Blood Urea Nitrogen 37 mg/dL (9-20); Calcium 8.7 mg/dL (8.4-10.2); Carbon Dioxide 25 mmol/L (22-30); Chloride 96 mmol/L (98-107); Glucose 133 mg/dL (74-99); Non-African American GFR(MDRD) 55 (>60 ml/min/1.73 sqM); Potassium 4.5 mmol/L (3.5-5.1); Sodium 130 mmol/L (137-145)
--- NOTE | 2016-09-12 07:54 | XR ---
EXAMINATION TYPE: XR chest 1V portable DATE OF EXAM: 09/12/2016 6:44 AM Comparison: 09/10/2016 Clinical History: 71-year-old male CHF Findings: Heart is upper limits of normal in size. Aorta within normal limits. Mild diffuse interstitial promin ence with significant worsening in right basilar opacity. Impression: Significant interval worsening in right basilar infiltrate and small effusion. Findings could reflect pneumonia or developing CHF.
[2016-09-12 07:57] LABS: Basophils % (A) 0 %; CH 28.2; Eosinophils % (A) 0 %; HCT 45.1 % (39.0-53.0); HDW 2.46; HGB 14.3 gm/dL (13.0-17.5); Luc # (Auto) 0.17; Luc % (Auto) 2; Lymphocytes # (A) 0.9 k/uL (1.0-4.8); Lymphocytes % (A) 9 %; MCH 27.2 pg (25.0-35.0); MCHC 31.6 g/dL (31.0-37.0); MCV 86.1 fL (80.0-100.0); Mean Platelet Volume 9.2; Monocytes # (A) 0.8 k/uL (0-1.0); Monocytes % (A) 8 %; Neutrophils # (A) 8.1 k/uL (1.3-7.7); Neutrophils % (A) 81 %; RBC 5.24 m/uL (4.30-5.90); RDW 15.2 % (11.5-15.5); WBC 10.1 k/uL (3.8-10.6); WBC (Perox) 10.18
[2016-09-12 08:58] LABS: Appearance,Urine Clear (Clear); Bilirubin,Urine Negative (Negative); Glucose,Urine (UA) Negative (Negative); Ketones,Urine Negative (Negative); Leukocyte Esterase,Urine Negative (Negative); Mucus,Urine Rare /hpf; Nitrite,Urine Negative (Negative); PH, Urine 5.5 (5.0-8.0); Particle Count 1299; Protein,Urine 1+ (Negative); RBC,Urine 63 /hpf (0-5); UA Billing (MACRO vs. MICRO) MICRO; WBC,Urine 5 /hpf (0-5)
[2016-09-12] MEDS: PANTOPRAZOLE 40 MG/10 ML VIAL IVP SCH (08:58)
[2016-09-12] MEDS: AMIODARONE 200 MG TAB PO SCH ×2 (08:58→20:04)
[2016-09-12] MEDS: APIXABAN 5 MG TAB PO SCH ×2 (08:59→20:04)
[2016-09-12] MEDS: SPIRONOLACTONE 25 MG TAB PO SCH (08:59)
[2016-09-12] MEDS: FUROSEMIDE 10 MG/ML 4 ML VIAL IV SCH ×2 (08:59→20:04)
[2016-09-12] MEDS: METOPROLOL TARTRATE 50 MG TAB PO SCH ×2 (08:59→20:04)
[2016-09-12] MEDS: LISINOPRIL 5 MG TAB PO SCH (08:59)
--- NOTE | 2016-09-12 11:23 | PN ---
DATE OF SERVICE: 09/11/2016 This 71-year-old gentleman who was admitted with shortness of breath and congestive heart failure acute exacerbation . Patient is on amiodarone. Cardiology is following the patient closely. The rate seems to be controlled at this time. Patient had paroxysmal atrial fibrillation. Amiodarone p.o. has been initiated by Cardiology. Follow-up CAT scan of the chest was recommended by Dr. Peterson. No chest pain, no palpitations. No fever. On exam, alert and oriented x3. Pulse is 111, blood pressure 108/69, respirations 18, temperature 98.2, pulse ox 93% on room air. HEENT: Conjunctivae normal. NECK: No jugular venous distention. CARDIOVASCULAR: S1 and S2, muffled. RESPIRATORY: Breath sounds diminished at the bases. A few scattered rhonchi and crackles. ABDOMEN: Soft, nontender. LEGS: No edema, no swelling. NERVOUS SYSTEM: No focal deficits. LABS: WBC 12, sodium 131, troponin 0.139, LDL is 38. Sugars are noted. ASSESSMENT: 1. Shortness of breath, possible congestive heart failure acute exacerbation with acute on chronic systolic dysfunction, ejection fraction 30% with possible cardiomyopathy. 2. Atrial fibrillation with fast ventricular rate paroxysmal. 3. Possible chronic obstructive pulmonary disease. 4. Right prominent lymph nodes and diffuse calcifications. 5. History of atrial fibrillation. 6. History of mild to moderate coronary arteries in the recent cardiac catheterization. 7. History of diabetes mellitus, type 2. 8. History of gastroesophageal reflux disease. 9. History of gastrointestinal bleed. 10. Hypertension. 11. Hyperlipidemia. 12. History of degenerative joint disease. 13. History of pericarditis. 14. History of anxiety. 15. Remote history of nicotine dependence. 16. FULL CODE. RECOMMENDATIONS AND DISCUSSION: In this 71-year-old gentleman who presented with multiple complex medical issues, we will monitor the patient closely, continue the current medications, continue with symptomatic treatment. Continue the diuretics. Continue the rest of the medications, continue with Eliquis. Repeat labs. Increase ambulation. Closely follow with Cardiology. Amiodarone p.o. per Cardiology. Guarded prognosis. Further recommendations to follow. MTDD
[2016-09-12 11:55] LABS: Glucose,Whole Blood 250 mg/dL (75-99)
--- NOTE | 2016-09-12 12:09 | P.PN ---
Subjective Principal diagnosis: Atrial fibrillation with RVR and congestive heart failure. This is a very pleasant 71-year-old gentleman who follows with Dr. Freeman as his primary care physician. He has a history of atrial fibrillation, diabetes mellitus, hypertension, previous myocardial infarction, GERD, osteoarthritis. He was just recently discharged today days ago prior to his return following an episode of chest discomfort and had undergone cardiac catheterization that did not require any intervention. His echocardiogram did reveal impaired left ventricular systolic function with estimated ejection fraction 30-35%. He will return to the ER yesterday with complaints of shortness of breath some swelling in the lower extremities and a feeling of anxiousness. He denied any recurrence of chest pain, palpitations lightheadedness or dizziness. His EKG did reveal atrial fibrillation with a rapid ventricular response in the 140s. He was admitted for the same. His chest x-ray revealed some mild congestive heart failure. There is also evidence of chronic obstructive pulmonary disease and a persistent hilar enlargement related to adenopathy is seen on a previous CAT scan from last admission. There is prominent right hilar lymph node along with old granulomatous disease. We are consulted today for the same. Presently , the patient is seen resting quite comfortably in bed on the selective care unit. He is awake and alert in no acute distress. He denies any worsening shortness of breath, cough or congestion. No hemoptysis. No noted weight loss. He does have a remote history of smoking. He denies any chronic obstructive pulmonary disease, no emphysema/asthma. No home inhalers. He has not been seen by a sox analyst in the past. Follow-up on 09/12/2016, patient is feeling better, however his chest x-ray is a little worse, and his renal profile is a bit worse. Objective - Vital Signs Vital signs: Vital Signs Temp 97.6 F 09/12/16 11:31 Pulse 89 09/12/16 11:31 Resp 20 09/12/16 11:31 BP 120/77 09/12/16 11:31 Pulse Ox 95 09/12/16 11:31 Intake & Output 09/11/16 09/12/16 09/12/16 18:59 06:59 18:59 Intake Total 1475 Output Total 750 400 Balance 725 -400 Weight 95 kg Intake: IV 80 Amiodarone 450 mg In 80 Dextrose 5% in Water 250 ml @ 0.5 MG/MIN 17.26 mls /hr IV .Q15H1M [facility] Rx#: [id number] Intake, IV Titration 259 Amount Amiodarone 450 mg In 259 Dextrose 5% in Water 250 ml @ 0.5 MG/MIN 17.26 mls /hr IV .Q15H1M [facility] Rx#: [id number] Oral 1136 Output: Urine 750 400 Other: # Voids 2 - Exam GENERAL EXAM: Alert, active, comfortable in no apparent distress. HEAD: Normocephalic. EYES: Normal reaction of pupils, equal size. NOSE: Clear with pink turbinates. THROAT: No erythema or exudates. NECK: No masses, no JVD. CHEST: No chest wall deformity. LUNGS: Equal air entry with crackles in the bilateral posterior bases.. CVS: S1 and S2 normal with an audible mumurs, irregular rhythm. ABDOMEN: No hepatosplenomegaly, normal bowel sounds, no guarding or rigidity. SPINE: No scoliosis or deformity SKIN: No rashes CENTRAL NERVOUS SYSTEM: No focal deficits, tone is normal in all 4 extremities. Extremities: There is trace peripheral edema. No clubbing, no cyanosis. Peripheral pulses are intact. - Labs CBC & Chem 7: 09/12/16 07:02 09/12/16 07:02 Labs: Abnormal Lab Results - Last 24 Hours (Table) 09/11/16 09/11/16 09/11/16 Range/Units 06:16 17:00 20:23 Plt Count (150-450) k/uL Neutrophils # (1.3-7.7) k/uL Lymphocytes # (1.0-4.8) k/uL Sodium (137-145) mmol/L Chloride (98-107) mmol/L BUN (9-20) mg/dL Creatinine (0.66-1.25) mg/dL Glucose (74-99) mg/dL POC Glucose (mg/dL) 125 H 173 H (75-99) mg/dL Hemoglobin A1c 6.8 H (4.2-6.1) % Urine Protein (Negative) Urine Blood (Negative) Urine RBC (0-5) /hpf Urine Mucus (None) /hpf 09/12/16 09/12/16 09/12/16 Range/Units 05:55 07:02 07:02 Plt Count 116 L (150-450) k/uL Neutrophils # 8.1 H (1.3-7.7) k/uL Lymphocytes # 0.9 L (1.0-4.8) k/uL Sodium 130 L (137-145) mmol/L Chloride 96 L (98-107) mmol/L BUN 37 H (9-20) mg/dL Creatinine 1.30 H (0.66-1.25) mg/dL Glucose 133 H (74-99) mg/dL POC Glucose (mg/dL) 130 H (75-99) mg/dL Hemoglobin A1c (4.2-6.1) % Urine Protein (Negative) Urine Blood (Negative) Urine RBC (0-5) /hpf Urine Mucus (None) /hpf 09/12/16 09/12/16 Range/Units 08:00 11:39 Plt Count (150-450) k/uL Neutrophils # (1.3-7.7) k/uL Lymphocytes # (1.0-4.8) k/uL Sodium (137-145) mmol/L Chloride (98-107) mmol/L BUN (9-20) mg/dL Creatinine (0.66-1.25) mg/dL Glucose (74-99) mg/dL POC Glucose (mg/dL) 250 H (75-99) mg/dL Hemoglobin A1c (4.2-6.1) % Urine Protein 1+ H (Negative) Urine Blood Moderate H (Negative) Urine RBC 63 H (0-5) /hpf Urine Mucus Rare H (None) /hpf Assessment and Plan Plan: #1 Acute exacerbation of chronic systolic congestive heart failure. Impaired left ventricular systolic function with estimated ejection fraction 30-35%. #2 Atrial fibrillation with rapid ventricular response requiring IV amiodarone. Anticoagulated with Eliquis. #3 Coronary artery disease with recent non-ST segment elevation myocardial infarction. Cardiac catheterization revealed mild to moderate nonobstructive disease involving the left anterior descending artery in the first obtuse marginal branch. The plan is to treat medically. #4 Prominent single right hilar lymph node measuring 2.0 x 1.4 cm. this lymph node is not easily accessible by bronchoscopy, however I plan to repeat his CT of the chest in the next 3-4 months, and if the node gets any larger, then we will definitely consider bronchoscopy and Yusuf needle aspiration of the lymph node. #5 Remote history of chronic nicotine addiction. #6 Diabetes mellitus, diet controlled. #7 Gastroesophageal reflux disease. #8 Hypertension. #9 suspect a small right-sided pleural effusion, hence I plan to arrange for an ultrasound, and if the effusion is large enough, would seriously consider a right-sided thoracentesis. Time with Patient: Less than 30
[2016-09-12] MEDS: MULTIVITAMINS, THERA 1 EACH TAB PO SCH (12:52)
--- NOTE | 2016-09-12 16:33 | PN ---
Mr. Watson is a 71-year-old male with history of cardiomyopathy, history of atrial fibrillation who presented with symptoms of worsening dyspnea. He is feeling better today. His breathing is better. He was ambulating. He denies any symptoms of chest pain. He denies any dizziness or palpitations. His ventricular response is under better control. His chest x-ray continues to show signs of congestive heart failure. He continues to be at this time on amiodarone 400 mg twice a day, Eliquis 5 mg twice a day, Lipitor 20 mg daily, Lasix 40 mg IV q.12 hours, Lisinopril 5 mg daily, metoprolol tartrate 50 mg twice a day, spironolactone 25 mg daily. PHYSICAL EXAMINATION: Blood pressure 120/70 with a heart in the 80s. LUNGS: Mild decrease in breath sounds. HEART: Irregularly irregular. S1, S2, no S3, with systolic murmur. ABDOMEN: Soft, nontender. EXTREMITIES: 1+ edema. Lab data revealed BUN and creatinine 37 and 1.3. Potassium 4.5. Hemoglobin of 14.3. IMPRESSION: 1. Congestive heart failure with known cardiomyopathy. 2. Atrial fibrillation. 3. Worsening renal function. 4. History of coronary artery disease. 5. Hyperlipidemia. RECOMMENDATIONS: Will continue the intravenous diuretic for another 24 hours, follow his renal function and depending on his progress, further recommendations will be made.
[2016-09-12 16:59] LABS: Glucose,Whole Blood 149 mg/dL (75-99)
[2016-09-12] MEDS: ATORVASTATIN 20 MG TAB PO SCH (20:04)
[2016-09-12] MEDS: FAMOTIDINE 20 MG TAB PO SCH (20:04)
[2016-09-12 20:12] LABS: Glucose,Whole Blood 215 mg/dL (75-99)
[2016-09-12] MEDS: ALPRAZolam 0.25 MG TAB PO PRN (22:51)
[2016-09-12] MEDS: HYDROcodone/APAP 5-325MG 1 EACH TAB PO PRN (22:51)
[2016-09-12] MEDS: MELATONIN 3 MG TABLET PO SCH (23:32)
[2016-09-13] MEDS: INSULIN LISPRO (humaLOG) 300 UNIT/3 ML VIAL SQ SCH ×4 (05:29→21:18)
[2016-09-13 05:44] LABS: Glucose,Whole Blood 126 mg/dL (75-99)
[2016-09-13 06:57] LABS: Basophils % (A) 0 %; CH 27.4; CHCM 32.5; Eosinophils # (A) 0.2 k/uL (0-0.7); Eosinophils % (A) 2 %; HCT 46.2 % (39.0-53.0); HGB 14.8 gm/dL (13.0-17.5); Luc # (Auto) 0.17; Luc % (Auto) 2; Lymphocytes # (A) 1.2 k/uL (1.0-4.8); Lymphocytes % (A) 14 %; MCH 27.1 pg (25.0-35.0); MCHC 32.1 g/dL (31.0-37.0); MCV 84.6 fL (80.0-100.0); Mean Platelet Volume 7.9; Monocytes # (A) 0.8 k/uL (0-1.0); Monocytes % (A) 10 %; Neutrophils % (A) 72 %; RBC 5.47 m/uL (4.30-5.90); RDW 15.2 % (11.5-15.5); WBC 8.4 k/uL (3.8-10.6); WBC (Perox) 8.99
[2016-09-13 07:14] LABS: Anion Gap 7 mmol/L; Blood Urea Nitrogen 38 mg/dL (9-20); Calcium 8.3 mg/dL (8.4-10.2); Carbon Dioxide 31 mmol/L (22-30); Chloride 96 mmol/L (98-107); Glucose 125 mg/dL (74-99); Non-African American GFR(MDRD) >60 (>60 ml/min/1.73 sqM); Potassium 4.3 mmol/L (3.5-5.1); Sodium 134 mmol/L (137-145)
[2016-09-13] MEDS: METOPROLOL TARTRATE 50 MG TAB PO SCH ×2 (08:38→21:18)
[2016-09-13] MEDS: AMIODARONE 200 MG TAB PO SCH ×2 (08:38→21:17)
[2016-09-13] MEDS: PANTOPRAZOLE 40 MG/10 ML VIAL IVP SCH (08:39)
[2016-09-13] MEDS: APIXABAN 5 MG TAB PO SCH ×2 (08:39→21:17)
[2016-09-13] MEDS: FUROSEMIDE 10 MG/ML 4 ML VIAL IV SCH (08:39)
[2016-09-13] MEDS: LISINOPRIL 5 MG TAB PO SCH (08:39)
[2016-09-13] MEDS: SPIRONOLACTONE 25 MG TAB PO SCH (08:39)
[2016-09-13 11:57] LABS: Glucose,Whole Blood 231 mg/dL (75-99)
[2016-09-13] MEDS: MULTIVITAMINS, THERA 1 EACH TAB PO SCH (12:12)
--- NOTE | 2016-09-13 13:18 | PN ---
DATE OF SERVICE: 09/12/2016 This 71-year-old gentleman who was admitted with shortness of breath possible CHF acute exacerbation also had atrial fibrillation. The patient also had chronic obstructive pulmonary disease and right lung shadows also. Dr. Peterson is recommending ultrasound of the lung to rule out possibility of any pleural effusion which is to be tapped. Cardiology and pulmonology following the patient closely. The patient also had worsening renal function today and the creatinine was slightly worse. Creatinine was found to be found to be 1.3 today. Blood sugar is also elevated. The dose of Lasix is being continue at this time. Past medical history reviewed. REVIEW OF SYSTEMS: CARDIOVASCULAR: No angina or palpitations. As mentioned earlier. RESPIRATORY: As mentioned earlier. GASTROINTESTINAL: As mentioned earlier. : No dysuria. Nervous system: No numbness, weakness. ALLERGY/IMMUNOLOGY: No asthma or hayfever. Musculoskeletal: As mentioned earlier. Current medications are reviewed and include: 1. [place] 5 mg q6h p.r.n. 2. Xanax 0.125 mg t.i.d. 3. Cordarone 400 mg p.o. b.i.d. 4. Eliquis 5 mg p.o. b.i.d. 5. Lipitor 20 mg . 6. Pepcid 20 mg 7. Lasix 40 mg b.i.d. 8. Humalog. 9. Zestril 5 mg daily. 10. Melatonin. 11. Lopressor. 12. Multivitamins. 13. Nitrostat. 14. Zofran. 15. Protonix. 16. Aldactone. PHYSICAL EXAMINATION: The patient is alert and oriented times three. Pulse is 96, blood pressure is 138/90, respiratory rate 16, temperature 96.8, pulse ox 94% on room air. HEENT: Conjunctivae normal. NECK: No jugular venous distention. CARDIOVASCULAR SYSTEM: S1, S2 muffled. RESPIRATORY: Breath sounds diminished at the bases. A few scattered rhonchi and crackles. ABDOMEN: Soft, nontender. No mass palpable. LEGS: No edema. No swelling. CENTRAL NERVOUS SYSTEM : Higher functions as mentioned earlier. Moves all four limbs. No focal deficits. LYMPHATICS: No lymph nodes palpable in the neck, axillae or groin. SKIN: No ulcer, rash or bleeding. LABS: Platelets are 11, otherwise sodium 130, creatinine is 1.30. UA noted. ASSESSMENT: 1. Shortness of breath possible congestive heart failure, acute exacerbation, with acute on chronic systolic dysfunction, ejection fraction 30% with possible cardiomyopathy present on admission. 2. Atrial fibrillation with fast ventricular rate, paroxysmal. 3. Acute renal failure, possibly prerenal secondary to diuresis. 4. Possible chronic obstructive pulmonary disease, right prominent lymph nodes and diffuse calcifications. 5. History of atrial fibrillation. 6. History of mild to moderate coronary artery disease on the recent cardiac catheterization. 7. History of diabetes mellitus type 2. 8. History of gastroesophageal reflux disease. 9. Gastrointestinal bleed. 10. Hypertension. 11. Hyperlipidemia. 12. History of degenerative joint disease. 13. History of pericarditis. 14. History of anxiety. 15. Remote history of nicotine dependence. 16. FULL CODE. RECOMMENDATIONS AND DISCUSSION: This 71-year-old gentleman who presented with multiple complex medical issues, we will monitor the patient closely, continue the current medications. Continue symptomatic treatment. Otherwise, continue diuretics and as well as the rest of the medications. We will monitor creatinine and sodium closely. Monitor blood sugars closely. I would recommend to continue with insulin scale and previous dosing of insulin. The patient is on Apixaban. Prognosis guarded because of multiple complex medical issues. Also recommend the patient to follow up closely in the outpatient setting. Further recommendations to follow. MTDD
--- NOTE | 2016-09-13 13:51 | P.PN ---
Subjective Principal diagnosis: Atrial fibrillation with RVR and congestive heart failure. This is a very pleasant 71-year-old gentleman who follows with Dr. Freeman as his primary care physician. He has a history of atrial fibrillation, diabetes mellitus, hypertension, previous myocardial infarction, GERD, osteoarthritis. He was just recently discharged today days ago prior to his return following an episode of chest discomfort and had undergone cardiac catheterization that did not require any intervention. His echocardiogram did reveal impaired left ventricular systolic function with estimated ejection fraction 30-35%. He will return to the ER yesterday with complaints of shortness of breath some swelling in the lower extremities and a feeling of anxiousness. He denied any recurrence of chest pain, palpitations lightheadedness or dizziness. His EKG did reveal atrial fibrillation with a rapid ventricular response in the 140s. He was admitted for the same. His chest x-ray revealed some mild congestive heart failure. There is also evidence of chronic obstructive pulmonary disease and a persistent hilar enlargement related to adenopathy is seen on a previous CAT scan from last admission. There is prominent right hilar lymph node along with old granulomatous disease. We are consulted today for the same. Presently , the patient is seen resting quite comfortably in bed on the selective care unit. He is awake and alert in no acute distress. He denies any worsening shortness of breath, cough or congestion. No hemoptysis. No noted weight loss. He does have a remote history of smoking. He denies any chronic obstructive pulmonary disease, no emphysema/asthma. No home inhalers. He has not been seen by a receiving clerk in the past. Follow-up on 09/12/2016, patient is feeling better, however his chest x-ray is a little worse, and his renal profile is a bit worse. Reevaluated on 09/13/2016, clinically the patient feels much better, breathing a lot easier, he is ambulatory and walking down the hallway without any significant shortness of breath. Ultrasound of the chest showed small bilateral pleural effusions, I strongly believe that the effusions would likely improve with diuretics only. No need for thoracentesis at this point, unless no response is noted after a good course of diuresis. Not to mention the patient is feeling much better clinically. His labs were reviewed, creatinine is 1.20 today. CBC is normal. Objective - Vital Signs Vital signs: Vital Signs Temp 96.6 F L 09/13/16 11:28 Pulse 85 09/13/16 11:29 Resp 18 09/13/16 11:29 BP 123/70 09/13/16 11:28 Pulse Ox 95 09/13/16 11:28 Intake & Output 09/12/16 09/13/16 09/13/16 18:59 06:59 18:59 Intake Total 240 600 Output Total 450 1850 Balance -210 -1250 Weight 94.5 kg Intake: Oral 240 600 Output: Urine 450 1850 Other: # Voids 2 - Exam GENERAL EXAM: Alert, active, comfortable in no apparent distress. HEAD: Normocephalic. EYES: Normal reaction of pupils, equal size. NOSE: Clear with pink turbinates. THROAT: No erythema or exudates. NECK: No masses, no JVD. CHEST: No chest wall deformity. LUNGS: Equal air entry with crackles in the bilateral posterior bases.. CVS: S1 and S2 normal with an audible mumurs, irregular rhythm. ABDOMEN: No hepatosplenomegaly, normal bowel sounds, no guarding or rigidity. SPINE: No scoliosis or deformity SKIN: No rashes CENTRAL NERVOUS SYSTEM: No focal deficits, tone is normal in all 4 extremities. Extremities: There is trace peripheral edema. No clubbing, no cyanosis. Peripheral pulses are intact. - Labs CBC & Chem 7: 09/13/16 06:17 09/13/16 06:17 Labs: Abnormal Lab Results - Last 24 Hours (Table) 09/12/16 09/12/16 09/13/16 Range/Units 16:51 20:07 05:29 Sodium (137-145) mmol/L Chloride (98-107) mmol/L Carbon Dioxide (22-30) mmol/L BUN (9-20) mg/dL Glucose (74-99) mg/dL POC Glucose (mg/dL) 149 H 215 H 126 H (75-99) mg/dL Calcium (8.4-10.2) mg/dL 09/13/16 09/13/16 Range/Units 06:17 11:37 Sodium 134 L (137-145) mmol/L Chloride 96 L (98-107) mmol/L Carbon Dioxide 31 H (22-30) mmol/L BUN 38 H (9-20) mg/dL Glucose 125 H (74-99) mg/dL POC Glucose (mg/dL) 231 H (75-99) mg/dL Calcium 8.3 L (8.4-10.2) mg/dL Microbiology - Last 24 Hours (Table) 09/12/16 08:00 Urine Culture - Final Urine,Clean Catch Assessment and Plan Plan: #1 Acute exacerbation of chronic systolic congestive heart failure. Impaired left ventricular systolic function with estimated ejection fraction 30-35%. #2 Atrial fibrillation with rapid ventricular response requiring IV amiodarone. Anticoagulated with Eliquis. #3 Coronary artery disease with recent non-ST segment elevation myocardial infarction. Cardiac catheterization revealed mild to moderate nonobstructive disease involving the left anterior descending artery in the first obtuse marginal branch. The plan is to treat medically. #4 Prominent single right hilar lymph node measuring 2.0 x 1.4 cm. this lymph node is not easily accessible by bronchoscopy, however I plan to repeat his CT of the chest in the next 3-4 months, and if the node gets any larger, then we will definitely consider bronchoscopy and Yusuf needle aspiration of the lymph node. #5 Remote history of chronic nicotine addiction. #6 Diabetes mellitus, diet controlled. #7 Gastroesophageal reflux disease. #8 Hypertension. #9 suspect a small right-sided pleural effusion, as noted on the chest x-ray, ultrasound showed small bilateral pleural effusions, again they are not large enough to perform thoracentesis at this point, I would recommend continue diuretics, and continue present treatment plan for his congestive heart failure. We'll continue to follow. Time with Patient: Less than 30
--- NOTE | 2016-09-13 14:08 | US ---
EXAMINATION TYPE: US chest DATE OF EXAM: 09/13/2016 1:22 PM COMPARISON: XRay on PACS CLINICAL HISTORY: right pleural effusion per order, recent Afib per patient. EXAM MEASUREMENTS: Right Pleural Effusion fluid pocket: 4.6 cm Right skin to fluid thickness: 4.8 cm Left Pleural Effusion fluid pocket: 5.1 cm Left skin to fluid thickness: 3.1 cm Right side was marked for possible thoracentesis outside the dept. Left side was marked for possible thoracentesis outside the dept. Pulmonologists are able to review the images in the patient?s EMR. TECHNOLOGIST IMPRESSION: bilateral pleural effusion IMPRESSIONS: Bilateral moderate pleural effusions.
[2016-09-13 16:48] LABS: Glucose,Whole Blood 136 mg/dL (75-99)
[2016-09-13] MEDS: FUROSEMIDE 40 MG TAB PO SCH (16:59)
[2016-09-13 20:34] LABS: Glucose,Whole Blood 233 mg/dL (75-99)
[2016-09-13] MEDS: ATORVASTATIN 20 MG TAB PO SCH (21:17)
[2016-09-13] MEDS: MELATONIN 3 MG TABLET PO SCH (21:17)
--- NOTE | 2016-09-13 21:45 | PN ---
Mr. Watson is a 71-year-old male with a history of cardiomyopathy, symptoms of congestive heart failure, atrial fibrillation. He is feeling better today. He is ambulating. His energy is better. His breathing is better. He denies any symptoms of chest pain. He denies any dizziness or palpitation. He continues to be on amiodarone 40 mg twice a day, Eliquis 5 mg twice a day, Lipitor 20 mg daily, Lasix 40 mg IV q.12 hours, Lisinopril 5 mg daily, metoprolol tartrate 50 mg twice a day, spironolactone 25 mg daily. PHYSICAL EXAMINATION: Blood pressure 123/72 with a heart in the 80s. LUNGS: With mild decreased breath sound at bases. HEART: Irregularly irregular. S1, S2, no S3, with a systolic murmur. ABDOMEN: Soft, nontender. EXTREMITIES: +1 edema. LAB DATA: BUN and creatinine of 38 and 1.2. Potassium 4.3. Hemoglobin of 14.8. IMPRESSION: 1. Symptoms of congestive heart failure with known history of cardiomyopathy, stable. 2. Atrial fibrillation. 3. History of coronary artery disease. 4. Hyperlipidemia. RECOMMENDATION: I will stop the IV Lasix. Switch him to oral diuretics, continue to increase his level of activity and depending on his progress, further recommendation will be made.
[2016-09-13] MEDS: HYDROcodone/APAP 5-325MG 1 EACH TAB PO PRN (22:27)
[2016-09-13] MEDS: ALPRAZolam 0.25 MG TAB PO PRN (22:28)
[2016-09-14 06:16] LABS: Glucose,Whole Blood 127 mg/dL (75-99)
[2016-09-14 06:24] LABS: Basophils % (A) 1 %; CH 27.8; CHCM 32.9; Eosinophils # (A) 0.2 k/uL (0-0.7); Eosinophils % (A) 3 %; HCT 46.1 % (39.0-53.0); HGB 14.4 gm/dL (13.0-17.5); Luc # (Auto) 0.11; Luc % (Auto) 2; Lymphocytes # (A) 1.1 k/uL (1.0-4.8); Lymphocytes % (A) 15 %; MCH 26.6 pg (25.0-35.0); MCHC 31.3 g/dL (31.0-37.0); Mean Platelet Volume 8.9; Monocytes # (A) 0.8 k/uL (0-1.0); Monocytes % (A) 12 %; Neutrophils # (A) 4.8 k/uL (1.3-7.7); Neutrophils % (A) 69 %; RBC 5.43 m/uL (4.30-5.90); RDW 15.4 % (11.5-15.5); WBC (Perox) 7.41
[2016-09-14 06:43] LABS: Anion Gap 8 mmol/L; Blood Urea Nitrogen 28 mg/dL (9-20); Calcium 8.2 mg/dL (8.4-10.2); Carbon Dioxide 29 mmol/L (22-30); Chloride 97 mmol/L (98-107); Glucose 122 mg/dL (74-99); Non-African American GFR(MDRD) >60 (>60 ml/min/1.73 sqM); Sodium 134 mmol/L (137-145)
[2016-09-14] MEDS: INSULIN LISPRO (humaLOG) 300 UNIT/3 ML VIAL SQ SCH ×2 (06:43→12:48)
[2016-09-14] MEDS: LISINOPRIL 5 MG TAB PO SCH (07:57)
[2016-09-14] MEDS: SPIRONOLACTONE 25 MG TAB PO SCH (07:57)
[2016-09-14] MEDS: FUROSEMIDE 40 MG TAB PO SCH (07:58)
[2016-09-14] MEDS: APIXABAN 5 MG TAB PO SCH (07:58)
[2016-09-14] MEDS: AMIODARONE 200 MG TAB PO SCH (07:58)
[2016-09-14] MEDS: METOPROLOL TARTRATE 50 MG TAB PO SCH (07:58)
[2016-09-14] MEDS ORDERED: PANTOPRAZOLE 40 MG TABLET PO SCH (09:00)
--- NOTE | 2016-09-14 09:47 | PN ---
DATE OF SERVICE: 09/13/2016 This 71-year-old gentleman, who was admitted with shortness of breath, also had atrial fibrillation. The renal function is improving at this time. No chest pain, no palpitation. No fever. Chest ultrasound only showed minimal pleural effusion. Dr. Peterson and cardiology are following the patient closely. Patient is feeling slightly better at this time. On exam, alert and oriented x3. Pulse 90, blood pressure 124/76, respiration 18, temperature 96.7, pulse ox 96% on room air. HEENT: Conjunctivae normal. NECK: No jugular venous distention. No carotid bruit. CARDIOVASCULAR: S1 and S2, muffled. No S3, no S4. RESPIRATORY: Breath sounds diminished at the bases. A few scattered rhonchi and crackles. ABDOMEN: Soft, nontender. No mass palpable. LEGS: Minimal edema bilaterally. NERVOUS SYSTEM: No focal deficits. LABS: WBC and CBC within normal limits. Sodium 134, glucose 125. Calcium is 8.3. ASSESSMENT: 1. Shortness of breath with possible congestive heart failure acute exacerbation with acute on chronic systolic dysfunction, ejection fraction 30% with possible cardiomyopathy present on admission. 2. Atrial fibrillation with fast ventricular rate paroxysmal. 3. Acute renal failure, possible prerenal, secondary to diuresis, improving. 4. Possible chronic obstructive pulmonary disease, right prominent lymph nodes and diffuse calcifications. 5. History of atrial fibrillation. 6. History of mild to moderate coronary artery disease and recent cardiac catheterization. 7. History of diabetes type 2. 8. History of gastroesophageal reflux disease. 9. Gastrointestinal bleed history. 10. Hypertension. 11. Hyperlipidemia. 12. History of degenerative joint disease. 13. History of pericarditis. 14. History of anxiety. 15. Remote history of nicotine dependence. 16. FULL CODE. RECOMMENDATIONS AND DISCUSSION: I recommend to continue the current medications, continue monitoring and symptomatic treatment. Continue with the p.o. diuretics. Continue the rest of the medications. Closely follow with Dr. Peterson and Cardiology. Repeat labs. Guarded prognosis. Overall patient is improving. Further recommendations to follow. Recommend outpatient follow up.
[2016-09-14 11:42] VITALS: BP 118/86; PULSE 92; RESP 16; TEMP 97.6
[2016-09-14 12:28] LABS: Glucose,Whole Blood 164 mg/dL (75-99)
[2016-09-14] MEDS: MULTIVITAMINS, THERA 1 EACH TAB PO SCH (12:48)
--- NOTE | 2016-09-14 14:08 | XR ---
EXAMINATION TYPE: XR chest 1V portable DATE OF EXAM: 09/14/2016 1:00 PM COMPARISON: 09/12/2016 HISTORY: Shortness of breath TECHNIQUE: Single frontal view of the chest is obtained. FINDINGS: Diffuse interstitial pattern is improved. Bilateral infiltrate and pleural effusion noted. Arthropathy of the shoulders. No pneumothorax. IMPRESSION: 1. Improving interstitial congestion with persistent bilateral lobe infiltrate and pleural effusion.
--- NOTE | 2016-09-14 15:07 | P.PN ---
Subjective Progress note dated 09/14/2016 This a 71-year-old gentleman who C Dr. Freeman. Admitted with a diagnosis of CHF. The patient has a history of atrial fibrillation diabetes hypertension previous myocardial infarction GERD and osteoarthritis. The patient used to be the [facility] and also [facility]. I'm not seen him for some time. Today when I go into the room and Dr. Youssef, the patient's feeling well. Likely to be discharged home today. He lives in [place]. Sees Dr. Freeman for as his primary doctor. Objective - Vital Signs Vital signs: Vital Signs Temp 97.6 F 09/14/16 11:41 Pulse 92 09/14/16 11:41 Resp 16 09/14/16 11:41 BP 118/86 09/14/16 11:41 Pulse Ox 95 09/14/16 11:41 Intake & Output 09/13/16 09/14/16 09/14/16 18:59 06:59 18:59 Intake Total 120 1200 220 Output Total 1200 900 250 Balance -1080 300 -30 Weight 93.3 kg Intake: Oral 120 1200 220 Output: Urine 1200 900 250 Other: # Voids 1 3 1 - Exam No acute distress, oriented 3. HEENT examination is grossly unremarkable. Mucous membranes are moist. There are no oral lesions. Neck supple. Full range of motion. No adenopathy. Cardiovascular examination reveals regular rhythm rate. S1-S2 normal. No S3- S4. No murmur. Lungs reveal relatively clear breath sounds. No wheezes or rhonchi. No crackles. Abdomen soft bowel sounds are heard. Extremities are intact. - Labs CBC & Chem 7: 09/14/16 05:55 09/14/16 05:55 Labs: Abnormal Lab Results - Last 24 Hours (Table) 09/13/16 09/13/16 09/14/16 Range/Units 16:40 20:32 05:55 Sodium 134 L (137-145) mmol/L Chloride 97 L (98-107) mmol/L BUN 28 H (9-20) mg/dL Glucose 122 H (74-99) mg/dL POC Glucose (mg/dL) 136 H 233 H (75-99) mg/dL Calcium 8.2 L (8.4-10.2) mg/dL 09/14/16 09/14/16 Range/Units 06:15 12:02 Sodium (137-145) mmol/L Chloride (98-107) mmol/L BUN (9-20) mg/dL Glucose (74-99) mg/dL POC Glucose (mg/dL) 127 H 164 H (75-99) mg/dL Calcium (8.4-10.2) mg/dL Microbiology - Last 24 Hours (Table) 09/12/16 08:00 Urine Culture - Final Urine,Clean Catch Assessment and Plan (1) Atrial fibrillation with RVR Status: Acute (2) CAD (coronary artery disease) Status: Acute (3) Cardiomyopathy Status: Acute (4) HTN (hypertension) Status: Acute (5) Hyperlipemia Status: Acute (6) NSTEMI (non-ST elevated myocardial infarction) Status: Acute (7) Paroxysmal a-fib Status: Acute (8) Systolic CHF, acute on chronic Status: Acute Plan: Planned for 09/14/2016 next In all likelihood Mr. Watson will be discharged home today. He is doing well. We'll follow up with and his ore buyer is Dr. Paulson. The patient otherwise is doing well. No discharge recommendations are made. We'll follow only as needed. Time with Patient: Less than 30
--- NOTE | 2016-09-14 15:46 | P.PN ---
Subjective Principal diagnosis: Atrial fibrillation This is a 71-year-old gentleman with history of cardiomyopathy, presented with symptoms of difficulty in breathing, was treated for congestive cardiac failure. Also has atrial fibrillation. He's been up ambulating in the hallway without any difficulty. Continues to be in atrial fibrillation, his rate is under adequate control. He is currently on amiodarone 400 mg one tablet by mouth twice a day, this will continue for one week, and we will decrease it to 200 mg one tablet by mouth 3 times a day for one week, then 200 mg twice a day. Objective - Vital Signs Vital signs: Vital Signs Temp 97.6 F 09/14/16 11:41 Pulse 92 09/14/16 11:41 Resp 16 09/14/16 11:41 BP 118/86 09/14/16 11:41 Pulse Ox 95 09/14/16 11:41 Intake & Output 09/13/16 09/14/16 09/14/16 18:59 06:59 18:59 Intake Total 120 1200 220 Output Total 1200 900 500 Balance -1080 300 -280 Weight 93.3 kg Intake: Oral 120 1200 220 Output: Urine 1200 900 500 Other: # Voids 1 3 1 - Exam PHYSICAL EXAMINATION: HEENT: Head is atraumatic, normocephalic. Pupils equal, round. Neck is supple. There is no elevated jugular venous pressure. HEART EXAMINATION: S1 and S2 irregular irregular a systolic murmur is heard. CHEST EXAMINATION: Lungs are clear to auscultation and precussion. No chest wall tenderness is noted on palpation or with deep breathing. ABDOMEN: Soft, nontender. Bowel sounds are heard. No organomegaly noted. EXTREMITIES: 2+ peripheral pulses with trace evidence of peripheral edema and no calf tenderness noted. NEUROLOGIC patient is awake, alert and oriented -3. . - Labs CBC & Chem 7: 09/14/16 05:55 09/14/16 05:55 Labs: Abnormal Lab Results - Last 24 Hours (Table) 09/13/16 09/13/16 09/14/16 Range/Units 16:40 20:32 05:55 Sodium 134 L (137-145) mmol/L Chloride 97 L (98-107) mmol/L BUN 28 H (9-20) mg/dL Glucose 122 H (74-99) mg/dL POC Glucose (mg/dL) 136 H 233 H (75-99) mg/dL Calcium 8.2 L (8.4-10.2) mg/dL 09/14/16 09/14/16 Range/Units 06:15 12:02 Sodium (137-145) mmol/L Chloride (98-107) mmol/L BUN (9-20) mg/dL Glucose (74-99) mg/dL POC Glucose (mg/dL) 127 H 164 H (75-99) mg/dL Calcium (8.4-10.2) mg/dL Microbiology - Last 24 Hours (Table) 09/12/16 08:00 Urine Culture - Final Urine,Clean Catch Assessment and Plan (1) Systolic CHF, acute on chronic Status: Acute (2) Ischemic cardiomyopathy Status: Acute (3) CAD (coronary artery disease) Status: Acute (4) HTN (hypertension) Status: Acute (5) Hyperlipemia Status: Acute (6) Paroxysmal a-fib Status: Acute Plan: From cardiology's perspective, patient may be able to be discharged home today. We will make him a follow-up appointment to see Dr. Paulson in the office post discharge. Recommendations regarding discharge medications have been given prescriptions have been provided. DNP note has been reviewed, I agree with a documented findings and plan of care. Patient was seen and examined.
--- NOTE | 2016-09-15 17:44 | DS ---
DATE OF ADMISSION: 09/10/2016 DATE OF DISCHARGE: 09/14/2016 FINAL DIAGNOSES: 1. Shortness of breath, possible congestive heart failure acute exacerbation with acute on chronic systolic dysfunction, ejection fraction 30% with possible cardiomyopathy present on admission. 2. Atrial fibrillation with fast ventricular rate, paroxysmal. 3. Acute renal failure, possible prerenal, secondary to diuresis, improving. 4. Possible chronic obstructive pulmonary disease in right lymph node on diffuse calcification. 5. History of atrial fibrillation. 6. History of mild to moderate coronary artery disease on the recent cardiac catheterization. 7. History of diabetes type 2. 8. History of gastroesophageal reflux disease. 9. Gastrointestinal bleed history. 10. Hypertension. 11. Hyperlipidemia. 12. History of degenerative joint disease. 13. History of pericarditis in the remote past. 14. History of anxiety. 15. Remote history of nicotine dependence. 16. FULL CODE. DISCHARGE DISPOSITION: The patient will be discharged in stable condition with guarded prognosis. Discharge cleared by multiple consultants including cardiology. HISTORY OF PRESENT ILLNESS: This 71-year-old gentleman with a past medical history of multiple medical problems, admitted with CHF acute exacerbation treated with IV diuretics and other medications. The patient improved significantly. Patient also had atrial fibrillation rate is controlled. On exam, vitals are stable. CARDIOVASCULAR: S1, S2 muffled. ABDOMEN: Soft. Nervous system: No focal deficits. LABS: BUN is 28. Creatinine 1, Accu-Cheks 127, 164, sodium 135, hemoglobin 14.4. Discharge advice and medications: 1. Diet is cardiac . 2. Activity limited until follow-up. 3. Fluid restrictions ( ) 24 ours, no added salt. 4. Follow-up with Dr. Freeman in 2 to 3 days. 5. Follow up with Dr. Medina as recommended. 6. Xanax 0.125 mg t.i.d. p.r.n. 7. Cordarone 400 mg p.o. b.i.d. for one week and then 200 mg t.i.d. for one week and then 200 mg p.o. b.i.d. tapering dose. 8. Eliquis 5 mg p.o. b.i.d. 9. Aspirin 320 mg p.o. daily. 10. Lipitor 20 mg q.h.s. 11. Lasix 40 b.i.d. 12. Hydrocodone 5 mg q6h p.r.n. 13. Zestril 5 mg p.o. daily. 14. Lopressor 50 mg p.o. b.i.d. 15. Multivitamins one p.o. daily. 16. Nitrostat 0.4 sublingual p.r.n. 17. Zantac mg q.h.s. 18. Aldactone 25 mg p.o. daily. Once again, the patient will be discharged in a stable condition with guarded prognosis. MTDD
== END 2016-09-14 15:33 | disposition home or self-care (01) | DRG 281 ==
LOC: EC 11:26 → 6SEL 13:48
PROVIDERS: ADMIT Hospitalist; ATTEND Hospitalist
DX: I11.0 Hypertensive heart disease with heart failure (principal); I21.4 Non-ST elevation (NSTEMI) myocardial infarction; N17.9 Acute kidney failure, unspecified; I48.0 Paroxysmal atrial fibrillation; E11.9 Type 2 diabetes mellitus without complications; I50.23 Acute on chronic systolic (congestive) heart failure; E78.5 Hyperlipidemia, unspecified; F41.9 Anxiety disorder, unspecified; I25.10 Atherosclerotic heart disease of native coronary artery without angina pectoris; I25.5 Ischemic cardiomyopathy; J44.9 Chronic obstructive pulmonary disease, unspecified; K21.9 Gastro-esophageal reflux disease without esophagitis; M19.90 Unspecified osteoarthritis, unspecified site; Z79.82 Long term (current) use of aspirin; Z82.49 Family history of ischemic heart disease and other diseases of the circulatory system; Z87.891 Personal history of nicotine dependence; Z79.899 Other long term (current) drug therapy; I25.2 Old myocardial infarction; Z88.8 Allergy status to other drugs, medicaments and biological substances
CPT/HCPCS: 36415; 71010; 71020; 76604; 80048; 80053; 80061; 81001; 82550; 82553; 83036; 83735; 83880; 84484; 85025; 85610; 85730; 87086; 93005; 96365; 96366; 96375; 96376; 99291